=== PATIENT | female | born 1950 | race Caucasian/White ===

== ENCOUNTER → 2024-04-21 | Outpatient (CLI) | payer MEDICARE ==
--- NOTE | 2024-04-21 16:05 | HMCIMG ---
LUMBAR SPINE 2-3VWS HISTORY: Back pain COMPARISON: None FINDINGS: 3 images of lumbar spine were obtained. There is straightening of normal lordotic curvature which may be related to muscle spasm or positioning. No loss of vertebral height is seen. No fracture or dislocation is seen. Degenerative changes are seen. IMPRESSION: 1. No fracture is seen.
--- NOTE | 2024-04-21 16:07 | HMCIMG ---
HIP BILAT 2VW HISTORY: Bilateral hip pain COMPARISON: None TECHNIQUE: 5 images of bilateral hips were obtained. FINDINGS: Bilateral hip joint space narrowing are seen. There is no acute displaced fracture or dislocation. Degenerative changes are seen. IMPRESSION: 1. Findings as described above.
== END | disposition home or self-care (01) ==
LOC: RAH 12:32
PROVIDERS: ATTEND Internal Medicine
DX: M16.0 Bilateral primary osteoarthritis of hip (principal); M47.819 Spondylosis without myelopathy or radiculopathy, site unspecified
CPT/HCPCS: 72100; 73521